=== PATIENT | female | born 1980 | race Two or more races ===

== ENCOUNTER 2023-09-07 22:46 | Emergency (ER) | payer MEDICAID, OTHER ==
[~2023-09-07] VITALS: Ht 170.2 cm; Wt 80.0 kg
[2023-09-07 23:33] LABS: Basophils # (auto) 0.2 10 ^3/uL (0-0.2); Basophils % (auto) 1.2 % (0.0-2.0); Eosinophils # (auto) 0.4 10 ^3/uL (0-0.8); Eosinophils % (auto) 2.7 % (0.0-7.0); Hematocrit 45.7 % (36.0-46.0); Hemoglobin 15.5 g/dL (12.2-16.2); Lymphocytes # (auto) 4.1 10 ^3/uL (0.4-5.4); Lymphocytes % (auto) 30.6 % (10.0-50.0); Mean Corpuscular Hemoglobin 30.6 pg (28.0-32.0); Mean Corpuscular Hgb Conc. 33.8 g/dL (32.0-36.0); Mean Corpuscular Volume 90.6 fL (80.0-100.0); Monocytes # (auto) 0.7 10 ^3/uL (0-1.3); Monocytes % (auto) 4.9 % (0.0-12.0); Neutrophils % (auto) 60.6 % (37.0-80.0); Nucleated Red Blood Cells % 0.1 %; Red Blood Cells 5.05 10^6/uL (4.0-5.20); Red Cell Distribution Width 13.5 % (11.8-14.3); White Blood Cell 13.2 10^3/uL (4.4-10.8)
[2023-09-07 23:39] LABS: Chloride 106 mmol/L (98-107); Potassium 3.6 mmol/L (3.5-5.1); Sodium 138 mmol/L (136-145)
[2023-09-07 23:40] LABS: Anion Gap 7 (5-15); Calcium 10.4 mg/dL (8.7-10.4); Carbon Dioxide 25 mmol/L (20-30)
[2023-09-07 23:45] LABS: BUN/Creatinine Ratio 14.9 (10.0-20.0); Blood Urea Nitrogen 11 mg/dL (9-23); Glucose 264 mg/dL (74-106)
[2023-09-08] LABS: Urine Bacteria FEW /hpf (None Seen); Urine Blood Negative /uL (Negative); Urine Budding Yeast OCCASIONAL /hpf (None Seen); Urine Clarity Turbid (Clear); Urine Color Colorless (Yellow); Urine Mucus FEW (None Seen); Urine Protein, UAD TRACE (Negative); Urine Specific Gravity 1.023 (1.001-1.035); Urine Urobilinogen Normal (Negative); Urine WBC 128 /hpf (0 - 5)
[2023-09-08 02:38] VITALS: BP 131/85; PULSE 100; RESP 20; TEMP 98.7; O2SAT 98
== END 2023-09-08 02:55 | disposition left against medical advice (07) ==
LOC: ER 22:46
DX: E11.65 Type 2 diabetes mellitus with hyperglycemia (principal); R10.2 Pelvic and perineal pain; Z53.21 Procedure and treatment not carried out due to patient leaving prior to being seen by health care provider
CPT/HCPCS: 36415; 80048; 81001; 82962; 84702; 85025